=== PATIENT | female | born 1985 | race African-American/Black ===

== ENCOUNTER 2019-03-16 16:14 | Emergency (ER) | payer MEDICAID ==
[~2019-03-16] VITALS: Ht 160 cm; Wt 97.0 kg
[2019-03-16 17:21] LABS: BASOPHILS % 0.2 % (0.0-2.0); EOSINOPHILS % 0.8 % (0.0-5.0); HEMATOCRIT. 36.2 % (36.0-48.0); HEMOGLOBIN. 12.5 g/dL (12.0-16.0); LYMPHOCYTES % 12.9 % (20.0-50.0); MEAN CORPUSCULAR HEMOGLOBIN 31.7 pg (28.0-32.0); MEAN CORPUSCULAR VOLUME 92.3 fL (81.0-99.0); MEAN PLATELET VOLUME 7.4 fl (7.4-10.4); MONOCYTES % 4.7 % (2.0-8.0); NEUTROPHILS % 81.4 % (40.0-76.0); PLATELET 275 x1000/uL (130-400); RED BLOOD CELL COUNT 3.92 mill/uL (4.2-5.4); RED CELL DISTRIBUTION WIDTH 13.3 % (11.6-14.6)
[2019-03-16 17:26] LABS: CHLORIDE 112 mEq/L (98-107)
[2019-03-16 17:36] LABS: B-HCG QUANTITATIVE 986 mIU/mL (<3)
[2019-03-16 19:35] VITALS: BP 105/76
== END 2019-03-16 19:41 | disposition home or self-care (01) ==
LOC: ER 16:14
DX: O03.9 Complete or unspecified spontaneous abortion without complication (principal); O99.511 Diseases of the respiratory system complicating pregnancy, first trimester; J45.909 Unspecified asthma, uncomplicated; O34.219 Maternal care for unspecified type scar from previous cesarean delivery; Z3A.10 10 weeks gestation of pregnancy
CPT/HCPCS: 36415; 76801; 80048; 84702; 86850; 86900; 99284